=== PATIENT | female | born 1935 | race Caucasian/White ===

== ENCOUNTER 2016-12-27 10:25 | Emergency (ER) | payer MEDICARE, BC ==
[~2016-12-27] VITALS: Ht 162.6 cm; Wt 78.0 kg
[~2016-12-27 10:25] MED LIST: 3N1 COMMODE MC; ASPI-781 PO; OXYC-481 PO; TRAM50TA2 PO; WALK1EAC23 MC
[2016-12-27 10:42] VITALS: Ht 162.6 cm; Wt 78.0 kg
[2016-12-27] MEDS ORDERED: HYDROCODONE/APAP (5/325) TAB PO ONE (13:30)
--- NOTE | 2016-12-27 13:58 | RADRPT ---
PROCEDURE: CT Pelvis without contrast. CLINICAL INDICATION: Pelvic pain. Trauma due to a fall. TECHNIQUE: CT scan of the pelvis without intravenous contrast was performed. Helical axial section s were obtained through the pelvis without intravenous contrast enhancement. Coronal and sagittal r eformatted images were obtained from the axial source images. Images were reviewed on a high-resolut [employer] PACS workstation. Total exam DLP is 1758.49 mGy-cm. CTDIvol is 30.29 mGy. One or more of the f ollowing dose reduction techniques were used: Automated exposure control, adjustment of the mA and/o r kV according to patient size, use of iterative reconstruction technique. COMPARISON: None. FINDINGS: A large portion of the pelvis is obscured due to beam-hardening artifact from bilateral hip arthropl asties. There is no pelvic lymphadenopathy. There is a calcified fibroid in the uterus. There is no other pelvic mass. The visualized portion of the bladder and distal ureters are normal. The appendix is well seen and appears normal. There is diverticulosis of the colon without evidence of diverticulitis. The bowel and mesentery ar e otherwise normal. There is no free fluid or free gas. There are bilateral total hip arthroplasties which appears satisfactory. There is no fracture, disl ocation, or loosening. The visualized portions of the pelvis demonstrate no fracture or lytic lesio n. There are degenerative changes of the lower lumbar spine. IMPRESSION: 1. Calcified fibroid in the uterus. 2. Normal appendix. 3. Diverticulosis of the colon without evidence of diverticulitis. 4. Bilateral total hip arthroplasties. 5. No acute fracture or lytic lesion. 6. Degenerative changes of the lower lumbar spine. RPTAT: QQ .Tramaine Garcia MD, MD Date Time Electronically viewed and signed by .Tramaine Garcia MD, on 12/27/2016 13:58 .R/
--- NOTE | 2016-12-27 14:29 | RADRPT ---
PROCEDURE: CT Lumbar Spine. CLINICAL INDICATION: Low back pain TECHNIQUE: The study was performed on a multidetector CT scanner. Volumetric data was obtained th rough the lumbar spine and reformatted in the axial plane. Sagittal and coronal reformations were cr eated from the raw axial data. One or more the following does reduction techniques were utilized: Au tomated exposure control, adjustment of the mA/ or kV according to patient's size, or use of iterati ve reconstruction technique. The images were reviewed on a PACS workstation. CTDI 27.94, 30.29 mGy. DLP 1758.49 mGy-cm. COMPARISON: No prior studies are available for comparison. FINDINGS: There is maintenance of the normal lumbar lordosis. There is 2 mm retrolisthesis at L1-L2 and 2 mm a nterolisthesis at L4-L5. Mild dextroscoliosis of lumbar spine is noted centered at the L3-L4. Diffuse osseous demineralization is noted which limits evaluation for fracture. There is approximate ly 3 cm probable hemangioma in the right lateral aspect of L4 vertebral body with associated trabecu lar thickening and polka-dot appearance on axial images. The paravertebral soft tissues are unremarkable. Aortic atherosclerotic vascular calcifications are identified. T12-L1: The disk is moderately decreased in height with vacuum disk phenomenon. There is 2-3 mm dif fuse disk bulge. Mild bilateral facet arthropathy is noted. Mild bilateral foraminal narrowing is n oted. The central canal appears adequately patent. L1-L2: The disk is mildly decreased in height. There is 2 mm retrolisthesis There is 2-3 mm diffus e disk bulge. Mild bilateral facet arthropathy is noted. These contribute to moderate to severe bila teral foraminal stenosis. The central canal appears adequately patent. L2-L3: The disk is moderately to severely decreased in height. There is 2-3 mm diffuse disk bulge. M ild bilateral facet arthropathy is noted. Moderate to severe left and moderate right foraminal sten osis is noted. The central canal appears adequately patent. L3-L4: The disk is moderately to severely decreased in height. There is 2-3 mm diffuse disk bulge. Mild right and moderate left facet arthropathy is noted as well as ligamentum flavum thickening. Mo derate to severe left and moderate right foraminal stenosis is noted. There is mild spinal canal jaxon nosis. L4-L5: The disk is moderately decreased in height. There is 2 mm anterolisthesis with unroofing dis k and 2 mm diffuse disk bulge. Moderate to severe bilateral facet arthropathy is noted as well as li gamentum flavum thickening. These contribute to moderate to severe spinal canal stenosis. Moderate bilateral foraminal stenosis is noted. L5-S1: The disk is mildly to moderately decreased in height. There is 2-3 mm diffuse disk bulge. Mod erate to marked bilateral arthropathy is noted. Moderate right and mild to moderate left foraminal stenosis is noted. There is no significant spinal canal stenosis. IMPRESSION: 1. Diffuse osseous demineralization. No acute lumbar spine compression fracture. 2. 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 3. Multilevel moderate to severe facet arthropathy, most severe at L4-L5 and L5-S1. 4. At L4-L5, 2 mm anterolisthesis with unroofing disk and 2 mm diffuse disk bulge. Moderate to sarthak re spinal canal stenosis. Moderate bilateral foraminal stenosis. 5. Multilevel foraminal stenosis as outlined in details in findings. 6. 3 cm probable hemangioma in the right lateral aspect of L4 vertebral body. 7. Aortic atherosclerosis. RPTAT: HH .Dominic Vick MD, Date Time Electronically viewed and signed by .Dominic Vick MD, MD on 12/27/2016 14:29 .N/
[2016-12-27] MEDS ORDERED: HYDR-906 PO (15:17)
[2016-12-27 15:25] VITALS: BP 116/78; PULSE 105; RESP 18
--- NOTE | 2016-12-27 15:40 | ERD ---
ER Documentation Chief Complaint Date/Time DATE: 12/27/16 TIME: 15:31 Chief Complaint Pt with lowerback and pelvic pain X 3 days after GLF. HPI 81-year-old female patient with a past medical history of 2 bilateral hip replacements presented to the ED for a mechanical fall that occurred earlier today. States that she accidentally tripped on water on the floor and accidentally landed on the stair step with her lower back. Denies any head or neck injury. Denies any loss of consciousness. Reports that she landed on a marble step. Describes as a sharp pain and rates it a 10 out of 10. States that it feels like "lightning is hitting my ass". Denies any chest pain, abdominal pain, nausea, vomiting, diarrhea, shortness of breath, dyspnea on exertion, orthopnea. Denies any saddle anesthesia, numbness or tingling, urine or bowel incontinence. ROS All systems reviewed and are negative except as per history of present illness. Medications Home Meds Active Scripts Hydrocodone/Acetaminophen (Ridgeway 5-325 Tablet) 1 Each Tablet, 1 TAB PO QHS Y for PAIN, #5 TAB Prov:AZUCENA SANCHEZ PA-C 12/27/16 Front Wheel Walker* (Front Wheel Walker*) 1 Each Dme, 1 EACH MC DIRECTED, #1 DME 0 Refills Prov:MADHU NELSON 11/25/15 3 N 1 Commode* (3 N 1 Commode*) 1 Each Dme, 1 EACH MC DIRECTED, #1 DME 0 Refills Prov:MADHU NELSON 11/25/15 Tramadol HCl (Tramadol HCl) 50 Mg Tab, 50 MG PO Q6, #60 TAB Prov:MADHU NELSON 11/25/15 Oxycodone Hcl* (IR) (Roxicodone*) 5 Mg Tab, 5 MG PO Q4H Y for PAIN LEVEL 1-3, # 60 TAB Prov:MADHU NELSON 11/25/15 Aspirin* (Ecotrin*) 325 Mg Tabec, 325 MG PO BID, #60 Prov:MADHU NELSON 11/25/15 Allergies Allergies: Coded Allergies: No Known Drug Allergies (Verified Allergy, Unknown, 11/25/15) nitrofurantoin (Unverified Allergy, Unknown, 11/25/15) per hystory and physical pt has allergy to macrobid, per patient she does not remember PMhx/Soc History of Surgery: Yes (R MIHIR, Cataract sx, Hernia repair) Anesthesia Reaction: No Hx Neurological Disorder: No Hx Respiratory Disorders: No Hx Cardiac Disorders: No Hx Psychiatric Problems: No Hx Miscellaneous Medical Probl: Yes (Mild aortic insufficiency, mitral valve regurgitation, Hx of TIA) Hx Alcohol Use: Yes (EVERY NIGHT) Hx Substance Use: No Hx Tobacco Use: No Smoking Status: Never smoker Physical Exam Vitals Vital Signs Date Time Temp Pulse Resp B/P Pulse Ox O2 Delivery O2 Flow Rate FiO2 12/27/16 15:25 105 18 116/78 12/27/16 10:42 97.2 113 18 125/77 98 Physical Exam Const: [id number]-hch-[id number], well-nourished. In no acute distress. Head: Atraumatic, normocephalic Eyes: Normal Conjunctiva without injection. No purulent discharge. PERRLA. EOMI ENT: Normal external ear. Ear canal without erythema. Tympanic membrane pearly camara without effusion or bulging. Nasal canal clear with normal turbinates. Moist oropharynx without tonsillar exudates. Non-erythematous pharynx. Uvula midline. No drooling. No trismus. Neck: No cervical midline tenderness. Full range of motion. No meningismus. No cervical lymphadenopathy. No JVD. Resp: Clear to auscultation bilaterally. No wheezing, rhonchi, rales, or crackles. No accessory muscle use. No retractions. Cardio: Regular rate and rhythm. No murmurs, rubs or gallops. Abd: Soft, non tender, non distended. Normal bowel sounds. No palpable masses. No rebound tenderness. No guarding. Negative McBurney's Point. Negative Perales's Sign. Skin: Normal skin turgor. No petechiae or rashes Back: No midline tenderness. No CVA tenderness. Tenderness to the left lower lumbar back region. Limited range of motion of the lower back. No ecchymosis noted. No edema or erythema. Ext: No cyanosis, or edema. Distal pulses intact bilaterally. Neur: Awake and alert. Normal gait with her cane. Normal coordination. Cranial Nerves II- VII intact. Normal finger to nose. Muscle strength 5/5. Sensation intact. Psych: Normal Mood and Affect Results 24 hrs Current Medications Medications (Trade) Dose Ordered Sig/Elina Route PRN Reason Start Time Stop Time Status Last Admin Dose Admin Acetaminophen/ Hydrocodone Bitart (Ridgeway (5/325)) 1 tab ONCE ONCE PO 12/27/16 13:30 12/27/16 13:31 DC 12/27/16 13:50 Procedures/MDM This is a 81-year-old female patient with a previous history of 2 hip replacements presents to the ED complaining of a back injury. Patient is afebrile and nontoxic-appearing. Patient has normal vital signs. A CT of the lumbar spine and pelvis this was ordered to further evaluate patient. Patient was given Ridgeway here in the ED with improvement of her pain. PROCEDURE: CT Lumbar Spine. CLINICAL INDICATION: Low back pain TECHNIQUE: The study was performed on a multidetector CT scanner. Volumetric data was obtained through the lumbar spine and reformatted in the axial plane. Sagittal and coronal reformations were created from the raw axial data. One or more the following does reduction techniques were utilized: Automated exposure control, adjustment of the mA/ or kV according to patient's size, or use of iterative reconstruction technique. The images were reviewed on a PACS workstation. CTDI 27.94, 30.29 mGy. DLP 1758.49 mGy-cm. COMPARISON: No prior studies are available for comparison. FINDINGS: There is maintenance of the normal lumbar lordosis. There is 2 mm retrolisthesis at L1-L2 and 2 mm anterolisthesis at L4-L5. Mild dextroscoliosis of lumbar spine is noted centered at the L3-L4. Diffuse osseous demineralization is noted which limits evaluation for fracture. There is approximately 3 cm probable hemangioma in the right lateral aspect of L4 vertebral body with associated trabecular thickening and polka-dot appearance on axial images. The paravertebral soft tissues are unremarkable. Aortic atherosclerotic vascular calcifications are identified. T12-L1: The disk is moderately decreased in height with vacuum disk phenomenon. There is 2-3 mm diffuse disk bulge. Mild bilateral facet arthropathy is noted. Mild bilateral foraminal narrowing is noted. The central canal appears adequately patent. L1-L2: The disk is mildly decreased in height. There is 2 mm retrolisthesis There is 2-3 mm diffuse disk bulge. Mild bilateral facet arthropathy is noted. These contribute to moderate to severe bilateral foraminal stenosis. The central canal appears adequately patent. L2-L3: The disk is moderately to severely decreased in height. There is 2-3 mm diffuse disk bulge. Mild bilateral facet arthropathy is noted. Moderate to severe left and moderate right foraminal stenosis is noted. The central canal appears adequately patent. L3-L4: The disk is moderately to severely decreased in height. There is 2-3 mm diffuse disk bulge. Mild right and moderate left facet arthropathy is noted as well as ligamentum flavum thickening. Moderate to severe left and moderate right foraminal stenosis is noted. There is mild spinal canal stenosis. L4-L5: The disk is moderately decreased in height. There is 2 mm anterolisthesis with unroofing disk and 2 mm diffuse disk bulge. Moderate to severe bilateral facet arthropathy is noted as well as ligamentum flavum thickening. These contribute to moderate to severe spinal canal stenosis. Moderate bilateral foraminal stenosis is noted. L5-S1: The disk is mildly to moderately decreased in height. There is 2-3 mm diffuse disk bulge. Moderate to marked bilateral arthropathy is noted. Moderate right and mild to moderate left foraminal stenosis is noted. There is no significant spinal canal stenosis. IMPRESSION: 1. Diffuse osseous demineralization. No acute lumbar spine compression fracture. 2. Multilevel moderate to severe discogenic disease most severe at L2-L3 and L3 -L4. 3. Multilevel moderate to severe facet arthropathy, most severe at L4-L5 and L5 -S1. 4. At L4-L5, 2 mm anterolisthesis with unroofing disk and 2 mm diffuse disk bulge. Moderate to severe spinal canal stenosis. Moderate bilateral foraminal stenosis. 5. Multilevel foraminal stenosis as outlined in details in findings. 6. 3 cm probable hemangioma in the right lateral aspect of L4 vertebral body. 7. Aortic atherosclerosis. RPTAT: HH .Dominic Vick MD, MD Date Time Electronically viewed and signed by .Dominic Vick MD, MD on 12/27/2016 14: 29 PROCEDURE: CT Pelvis without contrast. CLINICAL INDICATION: Pelvic pain. Trauma due to a fall. TECHNIQUE: CT scan of the pelvis without intravenous contrast was performed. Helical axial sections were obtained through the pelvis without intravenous contrast enhancement. Coronal and sagittal reformatted images were obtained from the axial source images. Images were reviewed on a high-resolution PACS workstation. Total exam DLP is 1758.49 mGy-cm. CTDIvol is 30.29 mGy. One or more of the following dose reduction techniques were used: Automated exposure control, adjustment of the mA and/or kV according to patient size, use of iterative reconstruction technique. COMPARISON: None. FINDINGS: A large portion of the pelvis is obscured due to beam-hardening artifact from bilateral hip arthroplasties. There is no pelvic lymphadenopathy. There is a calcified fibroid in the uterus. There is no other pelvic mass. The visualized portion of the bladder and distal ureters are normal. The appendix is well seen and appears normal. There is diverticulosis of the colon without evidence of diverticulitis. The bowel and mesentery are otherwise normal. There is no free fluid or free gas. There are bilateral total hip arthroplasties which appears satisfactory. There is no fracture, dislocation, or loosening. The visualized portions of the pelvis demonstrate no fracture or lytic lesion. There are degenerative changes of the lower lumbar spine. IMPRESSION: 1. Calcified fibroid in the uterus. 2. Normal appendix. 3. Diverticulosis of the colon without evidence of diverticulitis. 4. Bilateral total hip arthroplasties. 5. No acute fracture or lytic lesion. 6. Degenerative changes of the lower lumbar spine. Degenerative changes noted on the lumbar spine. Patient is ambulating here in the ED without difficulty. Denies saddle anesthesia, numbness or tingling, urine or bowel incontinence, weakness. Low suspicion for cauda equina syndrome, cord compression, nephrolithiasis, aortic aneurysm, aortic dissection, epidural abscess, spinal hematoma, malignancy, pyelonephritis, or other emergent conditions. Discharge medications: Ridgeway Follow up with primary care physician in 1-2 days. Instructed patient to return to the ED sooner for any worsening symptoms. Patient's questions were answered. Patient understood and agreed with discharge plan. Patient discharged stable. Departure Diagnosis: Primary Impression: Injury of back Encounter type: initial encounter Qualified Code: S39.92XA - Injury of back , initial encounter Condition: Stable Patient Instructions: Back Pain (Acute Or Chronic) Referrals: ABRAHAM GONSALVES MD (PCP) REPLACED BY [facility] YOU HAVE RECEIVED A MEDICAL SCREENING EXAM AND THE RESULTS INDICATE THAT YOU DO NOT HAVE A CONDITION THAT REQUIRES URGENT TREATMENT IN THE EMERGENCY DEPARTMENT. FURTHER EVALUATION AND TREATMENT OF YOUR CONDITION CAN WAIT UNTIL YOU ARE SEEN IN YOUR DOCTORS OFFICE WITHIN THE NEXT 1-2 DAYS. IT IS YOUR RESPONSIBILITY TO MAKE AN APPOINTMENT FOR FOLOW-UP CARE. IF YOU HAVE A PRIMARY DOCTOR --you should call your primary doctor and schedule an appointment IF YOU DO NOT HAVE A PRIMARY DOCTOR YOU CAN CALL OUR PHYSICIAN REFERRAL HOTLINE AT IF YOU CAN NOT AFFORD TO SEE A PHYSICIAN YOU CAN CHOSE FROM THE FOLLOWING [facility] [address] [facility] [address] [facility] [facility] [address] [facility] [address] [facility] [address] [facility] [address] [facility]. [facility]. [address] [facility] [address] [facility] YOU HAVE RECEIVED A MEDICAL SCREENING EXAM AND THE RESULTS INDICATE THAT YOU DO NOT HAVE A CONDITION THAT REQUIRES URGENT TREATMENT IN THE EMERGENCY DEPARTMENT. FURTHER EVALUATION AND TREATMENT OF YOUR CONDITION CAN WAIT UNTIL YOU ARE SEEN IN YOUR DOCTORS OFFICE WITHIN THE NEXT 1-2 DAYS. IT IS YOUR RESPONSIBILITY TO MAKE AN APPOINTMENT FOR FOLOW-UP CARE. IF YOU HAVE A PRIMARY DOCTOR --you should call your primary doctor and schedule and appointment IF YOU DO NOT HAVE A PRIMARY DOCTOR YOU CAN CALL OUR PHYSICIAN REFERRAL HOTLINE AT . IF YOU CAN NOT AFFORD TO SEE A PHYSICIAN YOU CAN CHOSE FROM THE FOLLOWING [facility] INSTITUTIONS: [facility] [address] [place] [address] [facility] [address] [place] [address] [facility] [address] [place] [address] [facility] URGENT CARE/SPECIALTIES Additional Instructions: You have been given a medicine which may cause drowsiness.DO NOT DRIVE OR OPERATE DANGEROUS MACHINERY while taking this medicine! Call your primary care doctor TOMORROW for an appointment during the next 1-2 days.See the doctor sooner or return here if your condition worsens before your appointment time. AZUCENA SANCHEZ PA-C December 27, 2016 15:40
== END 2016-12-27 15:50 | disposition home or self-care (01) ==
LOC: FTE 10:25
DX: S39.92XA Unspecified injury of lower back, initial encounter (principal); W01.0XXA Fall on same level from slipping, tripping and stumbling without subsequent striking against object, initial encounter; Y92.9 Unspecified place or not applicable; Z79.82 Long term (current) use of aspirin; Z96.643 Presence of artificial hip joint, bilateral
CPT/HCPCS: 72131; 72192

== ENCOUNTER → 2017-01-17 | Outpatient (CLI) | payer MEDICARE, BC ==
[~2017-01-17] MED LIST changes: +HYDR-906 PO
--- NOTE | 2017-01-17 11:47 | RADRPT ---
PROCEDURE: XR pelvis/left hip. CLINICAL INDICATION: Hip pain TECHNIQUE: AP pelvis/AP and lateral left hip views available for review. COMPARISON: 05/21/2016 FINDINGS: There are bilateral total hip replacements. There is normal mineralization, architecture and alignment. There is no evidence of loosening of th e prosthesis. There is no evidence of hardware failure. No fractures, dislocation or osseous lesions are identified. The joints are unremarkable. There are normal soft tissues. There is a large calc ified fibroid in the pelvis. IMPRESSION: Bilateral total hip replacements. Otherwise unremarkable examination. RPTAT: HGDB .Gabriel Cleaning MD, MD Date Time Electronically viewed and signed by .Gabriel Cleaning MD, on 01/17/2017 11:46 .B/
== END | disposition home or self-care (01) ==
LOC: HKI 10:43
PROVIDERS: ATTEND Orthopaedic Surgery
DX: Z47.89 Encounter for other orthopedic aftercare (principal); Z96.643 Presence of artificial hip joint, bilateral
CPT/HCPCS: 73502; G0463